=== PATIENT | female | born 1995 | race Caucasian/White ===

== ENCOUNTER 2017-03-26 20:39 | Emergency (ER) | payer BC, SELFPAY ==
[2017-03-26 21:04] LABS: Bilirubin Negative (Negative); Blood, Urine Negative (Negative); Clarity Hazy (Clear); Glucose, Urine (Dipstick) Negative (Negative); Leukocyte Negative (Negative); Nitrite Negative (Negative); Protein, Urine (Dipstick) Trace mg/dL (Neg-Trace); Specific Gravity, Urine 1.025 (1.005-1.030); pH, Urine 5.5 (5.0-9.0)
[2017-03-26 21:05] LABS: Pregnancy Test - Urine (BHCG) Negative (Negative); Pregu Control Background? CLEAR/WHITE (CLR/WHITE); Pregu Control Bar Appear? YES (CONTROL BAR); Specific Gravity 1.003 (1.002-1.036)
[2017-03-26] MEDS ORDERED: Ondansetron ODT 4 MG TAB ONE (21:06)
== END 2017-03-26 21:21 | disposition home or self-care (01) ==
LOC: BURERS 20:39
DX: R19.7 Diarrhea, unspecified (principal); R11.2 Nausea with vomiting, unspecified; R10.12 Left upper quadrant pain; R10.13 Epigastric pain; F32.9 Major depressive disorder, single episode, unspecified
CPT/HCPCS: 81003; 81025; 99284; Q0162

== ENCOUNTER 2018-01-29 21:56 | Emergency (ER) | payer BC, MEDICAID, OTHER | END 2018-01-29 22:34 | disposition home or self-care (01) | LOC: BURERS 21:56 | DX: O99.711 Diseases of the skin and subcutaneous tissue complicating pregnancy, first trimester (principal); L72.9 Follicular cyst of the skin and subcutaneous tissue, unspecified; L03.112 Cellulitis of left axilla; O99.341 Other mental disorders complicating pregnancy, first trimester; F32.9 Major depressive disorder, single episode, unspecified; Z3A.11 11 weeks gestation of pregnancy | CPT/HCPCS: 10060 ==

== ENCOUNTER 2018-04-21 18:14 | Emergency (ER) | payer OTHER ==
[2018-04-21 18:42] LABS: Bilirubin Negative (Negative); Blood, Urine Negative (Negative); Clarity Hazy (Clear); Glucose, Urine (Dipstick) Negative (Negative); Leukocyte Small (Negative); Nitrite Negative (Negative); Protein, Urine (Dipstick) Negative (Neg-Trace); Specific Gravity, Urine 1.015 (1.005-1.030); Urobilinogen 0.2 mg/dL (0.2-1.0)
[2018-04-21 18:53] LABS: Bacteria/HPF 1+ HPF (None Seen); Crystals/HPF 1+ AMORPH URATES HPF (Negative); Other Microscopic Description FEW CLUE CELLS; RBC/HPF 0-3 HPF (0-3); Squamous Epithelial 0-3 HPF (0-3); WBC/HPF 0-3 HPF (0-3)
[2018-04-21] MEDS ORDERED: Meclizine HCl 25 MG TAB ONE (19:00)
== END 2018-04-21 19:09 | disposition home or self-care (01) ==
LOC: BURERS 18:14
DX: O99.89 Other specified diseases and conditions complicating pregnancy, childbirth and the puerperium (principal); H83.09 Labyrinthitis, unspecified ear; Z3A.23 23 weeks gestation of pregnancy
CPT/HCPCS: 81003; 81015; 87086; 99284

== ENCOUNTER 2019-04-17 02:38 | Emergency (ER) | payer OTHER, SELFPAY | END 2019-04-17 03:13 | disposition home or self-care (01) | LOC: BURERS 02:38 | DX: J02.9 Acute pharyngitis, unspecified (principal); F32.9 Major depressive disorder, single episode, unspecified; F17.210 Nicotine dependence, cigarettes, uncomplicated | CPT/HCPCS: 99281 ==

== ENCOUNTER 2019-10-13 17:28 | Emergency (ER) | payer MEDICAID, SELFPAY | END 2019-10-13 18:15 | disposition left against medical advice (07) | LOC: BURERS 17:28 | DX: Z53.21 Procedure and treatment not carried out due to patient leaving prior to being seen by health care provider (principal) ==

== ENCOUNTER 2020-11-05 18:35 | Emergency (ER) | payer MEDICAID ==
[2020-11-05 19:12] LABS: Bilirubin Negative (Negative); Blood, Urine Negative (Negative); Clarity Slightly Cloudy (Clear); Glucose, Urine (Dipstick) Negative (Negative); Ketone, Urine Trace mg/dL (Negative); Leukocyte Small (Negative); Nitrite Negative (Negative); Protein, Urine (Dipstick) Trace mg/dL (Neg-Trace); Urobilinogen 0.2 mg/dL (Less than 2); pH, Urine 6.5 (5.0-9.0)
[2020-11-05 19:17] LABS: Specific Gravity, Urine 1.032 (1.002-1.036)
[2020-11-05 19:18] LABS: RBC/HPF 0-3 HPF (0-3)
[2020-11-05 19:19] LABS: Bacteria/HPF 3+ HPF (None Seen); Yeast-Budding Rare HPF (None Seen)
[2020-11-05 19:34] LABS: Pregnancy Test - Urine (BHCG) Negative (Negative); Pregu Control Background? CLEAR/WHITE (CLR/WHITE); Pregu Control Bar Appear? YES (CONTROL BAR); Specific Gravity 1.032 (1.002-1.036)
--- NOTE | 2020-11-05 20:17 | CT ---
CT OF THE LUMBAR SPINE 11/05/[address] of the lumbar spine was done after a fall. No fracture, dislocation, or acute bony change w as seen. No obviously herniated disc was appreciated. There is, however, degeneration occurring in th e L5-S1 disc. Vacuum phenomenon is now seen in that disc and there is some narrowing of the disc spac e. This level of degeneration was not present on the May 06, 2020 CT of the abdomen. However, this i s longstanding and nothing acute. The visible portions of the sacrum and SI joints showed no fracture . IMPRESSION: 1. No acute traumatic findings. 2. Degenerating disc at L5-S1. Preliminary report called to Dr. Espinoza at 1959 on 11/05/20. POS: HOME
== END 2020-11-05 20:14 | disposition home or self-care (01) ==
LOC: BURERS 18:35
DX: M51.36 Other intervertebral disc degeneration, lumbar region (principal); N39.0 Urinary tract infection, site not specified; Z87.891 Personal history of nicotine dependence
CPT/HCPCS: 72131; 81003; 81015; 81025

== ENCOUNTER 2020-12-19 23:00 | Emergency (ER) | payer MEDICAID ==
[2020-12-19] MEDS ORDERED: Ibuprofen 800 MG TAB ONE (23:33)
== END 2020-12-19 23:36 | disposition home or self-care (01) ==
LOC: BURERS 23:00
DX: S50.12XA Contusion of left forearm, initial encounter (principal); W19.XXXA Unspecified fall, initial encounter; E66.9 Obesity, unspecified; Z87.891 Personal history of nicotine dependence

== ENCOUNTER 2021-03-21 09:40 | Emergency (ER) | payer OTHER | END 2021-03-21 10:12 | disposition home or self-care (01) | LOC: BURERS 09:40 | DX: G51.0 Bell's palsy (principal); E66.9 Obesity, unspecified; F17.210 Nicotine dependence, cigarettes, uncomplicated | CPT/HCPCS: 99283 ==

== ENCOUNTER 2022-09-21 19:25 | Emergency (ER) | payer OTHER ==
[2022-09-21 20:09] LABS: #Basophils 0.1 thou/uL (0.0-0.2); #Eosinphils 0.1 thou/uL (0.0-0.7); #Lymphocytes 3.1 thou/uL (1.20-3.40); #Monocytes 0.8 thou/uL (0.11-0.59); #Neutrophils 7.6 thou/uL (1.40-6.50); %Basophils 0.8 % (0.0-1.0); %Eosinophils 0.9 % (0.0-10.0); %Lymphocytes 26.8 % (21.0-51.0); %Monocytes 6.7 % (0.0-10.0); %Neutrophils 64.9 % (42.0-75.0); Hemoglobin 13.3 g/dL (12.0-16.0); Mean Corpuscular HGB CONC 33.6 g/dL (32.0-36.0); Mean Corpuscular Hemoglobin 28.4 pg (27.0-31.0); Mean Corpuscular Volume 84.5 fl (78.0-98.0); Platelet Count 316 10x3/uL (130-400); RBC Distribution Width 12.4 % (11.5-14.5); White Blood Cell (WBC) Count 11.7 10x3/uL (4.8-10.8)
[2022-09-21 20:15] LABS: Bilirubin Negative (Negative); Blood, Urine Negative (Negative); Clarity Slightly Cloudy (Clear); Glucose, Urine (Dipstick) Negative (Negative); Ketone, Urine Trace mg/dL (Negative); Leukocyte Trace (Negative); Nitrite Negative (Negative); Protein, Urine (Dipstick) 30 mg/dL (Neg-Trace); Specific Gravity, Urine 1.025 (1.005-1.030)
[2022-09-21 20:16] LABS: ALT (SGPT) 35 U/L (8-55); AST (SGOT) 19 U/L (5-34); Albumin 3.8 g/dL (3.5-5.0); Alkaline Phosphatase 66 U/L (40-110); Anion Gap 11 mmol/L (10-20); BUN (Urea Nitrogen) 6 mg/dL (7.0-18.7); Bilirubin, Total 0.7 mg/dL (0.2-1.2); Calc. Creatinine Clearance 0 mL/min (70-130); Carbon Dioxide 21 mmol/L (22-29); Chloride 108 mmol/L (98-107); Estimated GFR 125; Globulin 2.8 g/dL (2.4-3.5); Glucose 134 mg/dL (70-105); Magnesium 1.7 mg/dL (1.6-2.6); Potassium 3.4 mmol/L (3.5-5.1); Protein, Total 6.6 g/dL (6.0-8.3); Sodium 137 mmol/L (136-145)
[2022-09-21 20:26] LABS: RBC/HPF None Seen HPF (0-3)
[2022-09-21 20:27] LABS: Bacteria/HPF 1+ HPF (None Seen); Mucous/LPF 1+ LPF (<2+)
== END 2022-09-21 21:40 | disposition home or self-care (01) ==
LOC: BURERS 19:25
DX: O99.891 Other specified diseases and conditions complicating pregnancy (principal); R20.0 Anesthesia of skin; R20.2 Paresthesia of skin; E66.9 Obesity, unspecified; F17.210 Nicotine dependence, cigarettes, uncomplicated; Z79.899 Other long term (current) drug therapy; Z3A.00 Weeks of gestation of pregnancy not specified
CPT/HCPCS: 80053; 81003; 81015; 83735; 85025; 93005; 96360

== ENCOUNTER 2022-10-16 19:25 | Emergency (ER) | payer MEDICAID, OTHER | END 2022-10-16 20:00 | disposition home or self-care (01) | LOC: BURERS 19:25 | DX: M72.2 Plantar fascial fibromatosis (principal); M76.892 Other specified enthesopathies of left lower limb, excluding foot; E66.9 Obesity, unspecified | CPT/HCPCS: 99283 ==

== ENCOUNTER 2024-03-15 20:36 | Emergency (ER) | payer MEDICAID | END 2024-03-15 21:22 | LOC: BURERS 20:36 | DX: M79.642 Pain in left hand (principal); M77.8 Other enthesopathies, not elsewhere classified; E66.9 Obesity, unspecified; X50.0XXA Overexertion from strenuous movement or load, initial encounter; Y93.89 Activity, other specified ==

== ENCOUNTER 2025-07-09 12:31 | Emergency (ER) | payer SELFPAY ==
[2025-07-09] MEDS ORDERED: Ondansetron PF 4 MG/2 ML Vial ONE (13:02)
[2025-07-09 13:12] LABS: #Basophils 0.2 thou/uL (0.0-0.2); #Eosinophils 0.3 thou/uL (0.0-0.7); #Lymphocytes 1.4 thou/uL (1.20-3.40); #Monocytes 0.7 thou/uL (0.11-0.59); #Neutrophils 8.7 thou/uL (1.40-6.50); %Basophils 1.8 % (0.0-1.0); %Eosinophils 2.8 % (0.0-10.0); %Lymphocytes 12.8 % (21.0-51.0); %Monocytes 5.8 % (0.0-10.0); %Neutrophils 76.7 % (42.0-75.0); Hematocrit 51.1 % (36.0-47.0); Hemoglobin 17.6 g/dL (12.0-16.0); Mean Corpuscular Hemoglobin 26.7 pg (27.0-31.0); Mean Corpuscular Volume 77.7 fl (78.0-98.0); Platelet Count 383 10x3/uL (130-400); Red Blood Cell (RBC) Count 6.58 mill/uL (4.20-5.40); White Blood Cell (WBC) Count 11.3 10x3/uL (4.8-10.8)
[2025-07-09 13:28] LABS: ALT (SGPT) 30 U/L (Less than 34); AST (SGOT) 21 U/L (11-34); Albumin 4.1 g/dL (3.1-4.5); Alkaline Phosphatase 70 U/L (40-110); Anion Gap 15 mmol/L (10-20); BUN (Urea Nitrogen) 12 mg/dL (7.0-18.7); Bilirubin, Total 1.5 mg/dL (0.3-1.2); Calc. Creatinine Clearance 0 mL/min (70-130); Calcium 9.3 mg/dL (7.8-10.44); Carbon Dioxide 17 mmol/L (22-29); Chloride 107 mmol/L (98-107); Globulin 3.6 g/dL (2.4-3.5); Glucose 110 mg/dL (70-105); Lipase 22 U/L (8-78); Potassium 3.5 mmol/L (3.5-5.1); Sodium 135 mmol/L (136-145)
== END 2025-07-09 14:58 | disposition home or self-care (01) ==
LOC: BURERS 12:31
DX: K52.9 Noninfective gastroenteritis and colitis, unspecified (principal); R11.2 Nausea with vomiting, unspecified
CPT/HCPCS: 36415; 80053; 83690; 85025; 96361; 96374

== ENCOUNTER 2025-07-13 15:19 | Emergency (ER) | payer SELFPAY ==
[2025-07-13] MEDS ORDERED: Ondansetron PF 4 MG/2 ML Vial ONE (16:04)
[2025-07-13 16:08] LABS: #Basophils 0.4 thou/uL (0.0-0.2); #Eosinophils 1.4 thou/uL (0.0-0.7); #Lymphocytes 3.5 thou/uL (1.20-3.40); #Monocytes 0.7 thou/uL (0.11-0.59); #Neutrophils 11.7 thou/uL (1.40-6.50); %Basophils 2.1 % (0.0-1.0); %Eosinophils 7.7 % (0.0-10.0); %Lymphocytes 19.8 % (21.0-51.0); %Monocytes 4.1 % (0.0-10.0); %Neutrophils 66.3 % (42.0-75.0); Hematocrit 49.3 % (36.0-47.0); Hemoglobin 17.3 g/dL (12.0-16.0); Mean Corpuscular Hemoglobin 26.8 pg (27.0-31.0); Mean Corpuscular Volume 76.6 fl (78.0-98.0); Platelet Count 394 10x3/uL (130-400); Red Blood Cell (RBC) Count 6.44 mill/uL (4.20-5.40); White Blood Cell (WBC) Count 17.7 10x3/uL (4.8-10.8)
[2025-07-13 16:21] LABS: ALT (SGPT) 72 U/L (Less than 34); AST (SGOT) 50 U/L (11-34); Albumin 3.6 g/dL (3.1-4.5); Alkaline Phosphatase 74 U/L (40-110); Anion Gap 15 mmol/L (10-20); BUN (Urea Nitrogen) 12 mg/dL (7.0-18.7); Bilirubin, Total 0.5 mg/dL (0.3-1.2); Calc. Creatinine Clearance 0 mL/min (70-130); Calcium 8.9 mg/dL (7.8-10.44); Carbon Dioxide 17 mmol/L (22-29); Chloride 110 mmol/L (98-107); Globulin 2.8 g/dL (2.4-3.5); Glucose 120 mg/dL (70-105); Lipase 94 U/L (8-78); Potassium 3.0 mmol/L (3.5-5.1); Sodium 139 mmol/L (136-145)
[2025-07-13] MEDS ORDERED: Iopamidol 370 76% 100 ML VIAL ONE (16:36)
[2025-07-13] MEDS ORDERED: Diphenoxylate HCl/Atropine Tablet ONE (18:40)
== END 2025-07-13 18:49 | disposition home or self-care (01) ==
LOC: BURERS 15:19
DX: K52.9 Noninfective gastroenteritis and colitis, unspecified (principal)
CPT/HCPCS: 74177; 80053; 83605; 83690; 85025; 96361; 96374; 96375; Q9967

== ENCOUNTER 2025-10-11 00:31 | Emergency (ER) | payer MEDICAID, OTHER ==
[2025-10-11 01:20] LABS: #Basophils 0.1 thou/uL (0.0-0.2); #Eosinophils 0.2 thou/uL (0.0-0.7); #Lymphocytes 3.1 thou/uL (1.20-3.40); #Monocytes 0.5 thou/uL (0.11-0.59); #Neutrophils 5.7 thou/uL (1.40-6.50); %Basophils 1.1 % (0.0-1.0); %Eosinophils 1.6 % (0.0-10.0); %Lymphocytes 32.6 % (21.0-51.0); %Monocytes 5.1 % (0.0-10.0); %Neutrophils 59.6 % (42.0-75.0); Hematocrit 46.4 % (36.0-47.0); Hemoglobin 14.9 g/dL (12.0-16.0); Mean Corpuscular Hemoglobin 27.4 pg (27.0-31.0); Mean Corpuscular Volume 85.1 fl (78.0-98.0); Platelet Count 318 10x3/uL (130-400); Red Blood Cell (RBC) Count 5.45 mill/uL (4.20-5.40); White Blood Cell (WBC) Count 9.6 10x3/uL (4.8-10.8)
[2025-10-11 01:25] LABS: Glucose, Urine (Dipstick) Negative (Negative); Leukocyte Trace (Negative); Protein, Urine (Dipstick) Negative (Neg-Trace); Specific Gravity, Urine 1.025 (1.005-1.030)
[2025-10-11 01:26] LABS: Bacteria/HPF Rare-Few HPF (None Seen); CAUTI Indications for Culture Dysuria,urgency,freq; RBC/HPF 0-3 HPF (0-3); WBC/HPF 0-3 HPF (0-3)
[2025-10-11 01:27] LABS: Urine Culture Reflex No No
[2025-10-11 01:30] LABS: BHCG - Serum Negative (NEGATIVE); Pregs Control Background? CLEAR/WHITE (CLR/WHITE); Pregs Control Bar Appear? YES (CONTROL BAR)
[2025-10-11] MEDS ORDERED: Pantoprazole 40 MG VIAL ONE (01:33)
[2025-10-11] MEDS ORDERED: Ondansetron PF 4 MG/2 ML Vial ONE (01:33)
[2025-10-11 01:35] LABS: ALT (SGPT) 33 U/L (Less than 34); AST (SGOT) 28 U/L (11-34); Albumin 4.0 g/dL (3.1-4.5); Alkaline Phosphatase 67 U/L (40-110); Anion Gap 13 mmol/L (10-20); BUN (Urea Nitrogen) 10 mg/dL (7.0-18.7); Bilirubin, Total 0.5 mg/dL (0.3-1.2); Calc. Creatinine Clearance 0 mL/min (70-130); Calcium 9.7 mg/dL (7.8-10.44); Carbon Dioxide 22 mmol/L (22-29); Chloride 108 mmol/L (98-107); Globulin 3.2 g/dL (2.4-3.5); Glucose 110 mg/dL (70-105); Lipase 73 U/L (8-78); Potassium 3.8 mmol/L (3.5-5.1); Sodium 139 mmol/L (136-145)
== END 2025-10-11 02:34 | disposition home or self-care (01) ==
LOC: BURERS 00:31
DX: K29.70 Gastritis, unspecified, without bleeding (principal); A08.4 Viral intestinal infection, unspecified
CPT/HCPCS: 80053; 81001; 83690; 84703; 85025; 96374; 96375; J2405; J2470